=== PATIENT | female | born 2000 | race Caucasian/White ===

== ENCOUNTER 2024-02-20 14:52 | Emergency (ER) | payer OTHER, SELFPAY ==
[2024-02-20 14:57] VITALS: BP 149/89; PULSE 113; TEMP 36.8; O2SAT 100; BMI 26.6
--- NOTE | 2024-02-20 15:10 | ED_ITS ---
HPI HPI - Back Pain/Injury General Chief Complaint: Back Pain/Injury Stated Complaint: back pain Time Seen by Provider: 02/20/24 14:56 Source: patient Mode of arrival: walk-in Limitations: no limitations History of Present Illness HPI Narrative: Patient is a 23-year-old female who presents to the emergency department for the evaluation of increasing right low back pain. She states she has a history of chronic back pain for several years which has never been evaluated by a provider or treated previously. She states in the last 3 days her back pain seems to be worse with some radiation to the right flank. Pain is significantly worse with movement and walking. She denies any mechanism of trauma. She is not concerned for . No medications taken prior to arrival. She denies urinary symptoms, peripheral paresthesias, abdominal pain, nausea, vomiting. Related Data Previous Rx's ?Medication ?Instructions ?Recorded hydrocodone 5 mg-acetaminophen 325 1 tab PO Q6H PRN pain 3 days #12 02/20/24 mg tablet tabs methocarbamol 750 mg tablet 750 mg PO TID PRN pain #20 tabs 02/20/24 methylprednisolone 4 mg tablets in See Rx Instructions .Route 02/20/24 a dose pack (Medrol (Omero)) .COMPLEX #21 ea Allergies Allergy/AdvReac Type Severity Reaction Status Date / Time No Known Drug Allergies Allergy Verified 02/20/24 14:57 Opioid HPI Opioid Management Most Recent Opioid Data: Last AUG Pain Assessment 02/20/24 15:53 Review of Systems ROS Constitutional Denies: fever or chills Ears, nose, mouth, and throat Denies: throat pain or nasal congestion Respiratory Denies: shortness of breath Gastrointestinal Denies: nausea or vomiting Genitourinary Denies: painful urination or urinary frequency Musculoskeletal Reports: back pain; Denies: neck pain or extremity pain Integumentary/Breast Denies: rash Neurological Denies: numbness in extremities or weakness in extremities Hematologic/Lymphatic Denies: easy bruising or easy bleeding Exam Narrative Exam Narrative: Gen.: Awake, alert, in no distress Head: Normocephalic, atraumatic ENT: Moist mucous membranes Respiratory: No respiratory distress Gastrointestinal: Abdomen is soft, nondistended and nontender to palpation Extremities: Moves extremities equally, normal dorsiflexion and plantarflexion of the lower extremities with no decrease in sensation to the medial thighs Back: Diffuse tenderness of the paraspinal muscles of the right low back with no CVA tenderness, no obvious deformity or step-off and no midline spinal tenderness of the lumbar spine Psych: Normal mood and affect Neuro: No focal neuro deficit Skin: Warm, dry, intact Constitutional Vital Signs, click to edit/add: Last Vital Signs Temp 98.2 F 02/20/24 14:57 Pulse 113 H 02/20/24 14:57 Resp 18 02/20/24 14:57 BP 149/89 H 02/20/24 14:57 Pulse Ox 100 02/20/24 14:57 Course Vital Signs Vital signs: Vital Signs Temperature 98.2 F 02/20/24 14:57 Pulse Rate 113 H 02/20/24 14:57 Respiratory Rate 18 02/20/24 14:57 Blood Pressure 149/89 H 02/20/24 14:57 Pulse Oximetry 100 02/20/24 14:57 Temperature 98.2 F 02/20/24 14:57 Pulse Rate 113 H 02/20/24 14:57 Respiratory Rate 18 02/20/24 14:57 Blood Pressure 149/89 H 02/20/24 14:57 Pulse Oximetry 100 02/20/24 14:57 MDM - Back Pain/Injury MDM Narrative Medical decision making narrative: Patient was medicated for pain, her urine specimen does show large blood, so she was sent for CT of the abdomen and pelvis without contrast which does not show any sign of ureteral stones, however the patient is noted to have disc bulging at L2/L3 and L4/L5. She was made aware of these results. Rest, ice, gentle stretching. Short course of analgesics, muscle relaxants and NSAIDs given for home. Follow-up with PCP and return to the ER if symptoms change or worsen SUPERVISED APC VISIT, PHYSICIAN ATTESTATION: Based on the medical record the care appears appropriate. ? Medical Records Attestation: I reviewed the patient's medical records. Lab Data Labs: Lab Results 02/20/24 Range/Units 15:16 Urine Color Lt. yellow (YELLOW) Urine Clarity Clear (CLEAR) Urine pH 6.0 (5.0-9.0) Ur Specific [place] <=1.005 A (1.005-1.025) Urine Protein Negative (NEG/TRACE) mg/dL Urine Glucose (UA) Negative (NEGATIVE) mg/dL Urine Ketones Negative (NEGATIVE) mg/dL Urine Occult Blood Large A (NEGATIVE) Urine Nitrite Negative (NEGATIVE) Urine Bilirubin Negative (NEGATIVE) Urine Urobilinogen 0.2 (0.2-1.0) EU/dL Ur Leukocyte Esterase Negative (NEGATIVE) Urine RBC 0-2 (0-2) #/HPF Urine WBC 0-2 A (NONE SEEN) #/HPF Ur Squamous Epith Cells Few A (NONE/RARE) #/LPF Urine Crystals None seen (None Seen) #/HPF Urine Bacteria Trace A (NONE SEEN) #/HPF Urine Casts None seen (NONE SEEN) #/LPF Urine Mucus None seen (NONE SEEN) Ur Culture Indicated? No Urine HCG, Qual Negative (NEGATIVE) Imaging Data CT scan - abdomen: Attestation: I have reviewed the pertinent imaging results. Radiologist's impression: ITS Impressions Abdomen/Pelvis CT 02/20/24 15:55 IMPRESSION: 1. No renal or ureteral calculi. 2. Normal appendix. No inflammatory changes within the abdomen or the pelvis. 3. Mild broad-based disc bulges noted at L3-L4 and L4-L5 without significant spinal canal or foraminal narrowing identified. Electronically authenticated by: PREM OLIVARES Date: 02/20/2024 17:44 Discharge Plan Discharge Stand Alone Forms: Work/School Release, Portal Instructions Chief Complaint: Back Pain/Injury Clinical Impression: Strain of lumbar region, Bulging lumbar disc Patient Disposition: Home, Self-Care Time of Disposition Decision: 17:50 Condition: Good Prescriptions / Home Meds: New hydrocodone-acetaminophen 5-325 mg tablet 1 tab PO Q6H PRN (Reason: pain) 3 Days Qty: 12 0RF Rx Instructions: DX: M54.5 methocarbamol 750 mg tablet 750 mg PO TID PRN (Reason: pain) Qty: 20 0RF methylprednisolone [Medrol (Omero)] 4 mg tablets,dose pack See Rx Instructions .ROUTE .COMPLEX Qty: 21 0RF Rx Instructions: Taper as directed Print Language: Frisian Instructions: Low Back Strain (ED) Referrals: Physician,Non-Staff, MD [Primary Care Provider] - 1 week
[2024-02-20 15:32] LABS: Bilirubin Urine NEGATIVE (NEGATIVE); Blood Urine LARGE (NEGATIVE); Clarity Urine CLEAR (CLEAR); Color Urine LT. YELLOW (YELLOW); Glucose Urine UA NEGATIVE (NEGATIVE); Ketones Urine NEGATIVE (NEGATIVE); Leukocyte Esterase Urine NEGATIVE (NEGATIVE); Nitrite Urine NEGATIVE (NEGATIVE); Protein Urine NEGATIVE (NEG/TRACE); Specific Gravity Urine <=1.005 (1.005-1.025); Urobilinogen Urine 0.2 EU/dL (0.2-1.0)
[2024-02-20 15:52] LABS: HCG Qualitative Urine* NEGATIVE (NEGATIVE); Internal Control Within Normal Limits
[2024-02-20 15:53] LABS: Urine Microscopic Indicated YES
[2024-02-20] MEDS: METHOCARBAMOL 500 MG TABLET 1000 MG PO (15:53)
[2024-02-20] MEDS: HYDROCODONE/ACET 5-325 MG TABLET 1 TAB PO (15:53)
[2024-02-20] MEDS: METHYLPREDNISOLONE SOD SUCC PF 125 MG/2 ML VIAL IM (15:53)
[2024-02-20 15:55] LABS: Bacteria Urine TRACE #/HPF (NONE SEEN); Cast Seen? NONE SEEN #/LPF (NONE SEEN); Crystals Seen? None Seen #/HPF (None Seen); Mucus Urine NONE SEEN (NONE SEEN); RBC Urine 0-2 #/HPF (0-2); Squamous Epithelial Cell Urine FEW #/LPF (NONE/RARE); WBC Urine 0-2 #/HPF (NONE SEEN)
--- NOTE | 2024-02-20 15:55 | CT_ITS ---
The [address] [address] Patient Name: ALEX SINGH MRN: [id number] date: 2000 Sex: F Assigned Patient Location: Current Patient Location: Accession/Order Number: [id number] Exam Date: 02/20/2024 15:57 Report Date: 02/20/2024 18:15 At the request of: KATIE BACA Procedure: CT abdomen pelvis wo con EXAM: CT abdomen pelvis wo con HISTORY: Low back pain and abdominal pain. COMPARISON: None. TECHNIQUE: Unenhanced helical acquisition obtained through the abdomen and the pelvis. Dose reduction techniques were achieved by using automated exposure control and/or adjustment of mA and/or kV according to patient size and/or use of iterative reconstruction technique. FINDINGS: The visualized lung bases and pleural spaces are clear. Unremarkable gallbladder. No significant biliary ductal dilatation. Allowing for the lack of intravenous contrast, the liver, spleen, pancreas and the adrenal glands are unremarkable. No renal or ureteral calculi. Normal appendix. No enlarged lymph nodes within the abdomen or the pelvis. No ascites or focal intraperitoneal fluid collections. Vertebral body heights and intervertebral disc spaces are preserved throughout the visualized lumbar spine. Mild broad-based disc bulges are noted at L3-L4 and L4-L5. CT/CT abdomen pelvis wo con IMPRESSION: 1. No renal or ureteral calculi. 2. Normal appendix. No inflammatory changes within the abdomen or the pelvis. 3. Mild broad-based disc bulges noted at L3-L4 and L4-L5 without significant spinal canal or foraminal narrowing identified. Electronically authenticated by: PREM OLIVARES Date: 02/20/2024 18:15
[2024-02-20 15:56] LABS: Urine Culture Indicated NO
[2024-02-20] MEDS: HYDROCODONE/ACET 5-325 MG TABLET 2 TAB PO (18:02)
== END 2024-02-20 18:05 | disposition home or self-care (01) ==
PROVIDERS: Physician Assistant; Emergency Provider Emergency Medicine
DX: S39.012A Strain of muscle, fascia and tendon of lower back, initial encounter (principal); M51.36 Other intervertebral disc degeneration, lumbar region; X58.XXXA Exposure to other specified factors, initial encounter
CPT/HCPCS: 74176; 81001; 84703; 96372; 99285; J2919